=== PATIENT | male | born 1940 | race African-American/Black ===

== ENCOUNTER 2017-01-24 05:55 | Inpatient (IN) ==
[2017-01-24] MEDS ORDERED: DIAZEPAM 5 MG TABLET PO ONE (05:56)
[2017-01-24] MEDS ORDERED: ceFAZolin 1,000 MG VIAL IRRIG ONE (05:58)
[2017-01-24] MEDS ORDERED: DEXTROSE 5% NACL 0.45% 1,000 ML IV SCH (06:00)
[2017-01-24] MEDS ORDERED: DIAZEPAM 5 MG TABLET ONE (07:19)
[2017-01-24] MEDS ORDERED: ceFAZolin 1,000 MG VIAL ONE ×2 (07:19→08:27)
[2017-01-24 07:28] LABS: Basophils % 0.3 % (0.0-0.8); Eosinophils # 0.1 10*3/uL (0.0-0.87); Hematocrit 42.3 VOL% (42.0-52.0); Hemoglobin 13.8 GM/DL (14.0-18.0); Immature Granulocytes % 0.3 %; Immature Granulocytes Absolute 0.01 #; Lymphocytes # 1.2 10*3/uL (1.4-4.0); Lymphocytes % 32.4 % (21.2-54.2); Mean Corpuscular HGB Conc 32.6 GM/DL (32-36); Mean Corpuscular Hemoglobin 27 PG (27-34); Mean Corpuscular Volume 81.8 FL (87-102); Mean Platelet Volume 10.7 FL (9.6-12.0); Monocytes # 0.4 10*3/uL (0.11-0.8); Monocytes % 10.7 % (1.7-12.7); Neutrophils # 1.9 10*3/uL (1.4-7.4); Neutrophils % 54.3 % (38.7-73.9); Platelet Count 148 T/CUMM (130-400); Red Blood Count 5.17 MC/CUMM (3.8-5.5); Red Cell Distribution Width 15.2 % (9.3-17.3); White Blood Count 3.6 T/CUMM (4-12)
[2017-01-24 07:38] LABS: INR 1.2; PT Patient Result 12.5 SECS; Partial Thromboplastin Time 33.4 SECS (0-40)
--- NOTE | 2017-01-24 07:58 | XRay Report ---
History: Preop pacemaker. Sick sinus syndrome. Hypertension Date: 01/24/2017 Study: Chest x-ray AP portable Comparison exam: March 07, 2016 There is mild cardiomegaly. The mediastinal contours are unchanged, with mild ectasia and tortuosity of the thoracic aorta. The pulmonary vasculature is not engorged. The lungs are grossly clear when accounting for shallow inspiration. There is no pleural effusion. There is mild thoracic spondylosis. Impression: No acute cardiopulmonary process. Mild cardiomegaly PROCEDURE INTERPRETED AT [facility] DEPARTMENT OF RADIOLOGY Final Report Signed by: Dr. Radha Larsen
[2017-01-24 07:59] LABS: Calcium 9.2 MG/DL (8.5-10.1); Osmolality,Calculated 282.1 MOS/KG (273-304); Potassium 3.3 MMOL/L (3.5-5.1)
[2017-01-24] MEDS ORDERED: HEPARIN/NACL 0.9% 2 UNITS/ML 500 ML IV ONE (08:26)
[2017-01-24] MEDS ORDERED: LIDOCAINE 1%/EPI INJ 20 ML VIAL ONE (08:26)
[2017-01-24] MEDS ORDERED: fentaNYL 100 MCG/2 ML VIAL ONE (08:53)
[2017-01-24] MEDS ORDERED: MIDAZOLAM 2 MG/2 ML VIAL ONE (08:53)
--- NOTE | 2017-01-24 09:07 | EKG Report ---
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
--- NOTE | 2017-01-24 09:13 | History and Physical Update ---
Sedation H&P Update - History and Physical H&P was reviewed, the patient examined and there: are no changes in the patients condition since last H&P was completed. - Sedation Plan for Sedation: moderate Patient Consent: Procedure disscussed with patient and patinet has consented., Risks and benefits were discussed with patient,including infection,, bleeding, injury to surrounding structures, seizure, temporary nerve, Patient understands and accepts potential risks/benefits and agrees to, proceed. ASA Class: III Airway Assessment: Class III: Soft palate, base of uvula visible
--- NOTE | 2017-01-24 10:11 | Cardiology Operative Report ---
Date of Procedure:: 01/24/17 Pre-op diagnosis: Patient with high-grade AV block and symptoms sick sinus syndrome for pacem Post-op diagnosis: same Procedure: Procedures performed: Dual-chamber pacemaker implant left subclavian vein Indication: See clinical summary above Estimated blood loss: Less than 20 mL Devices implanted: [ Atrial lead: Medtronic model #5076 serial number [id number] ] Ventricular lead: Medtronic model #5076 serial number [id number] Pacemaker: Medtronic model number [id number] Serial number [id number] After obtaining informed consent the patient was brought to the [employer] [facility] where the left shoulder was prepped and draped in the usual sterile manner. Using intravenous sedation and local anesthesia a micropuncture needle was used to gain access to the left subclavian vein a micropuncture wire was advanced under fluoroscopy with its tip in the right atrium. The micropuncture needle was removed off of the wire and using the supplied exchange sheath a micropuncture wire was exchanged for an 035 J-wire. At this point a cutdown was made to the prepectoral fascia extended caudally and laterally roughly 5 cm. Bleeding was controlled using electrocautery. At this point another needle stick was made medial to the first with a micropuncture needle inserted into the left subclavian vein. A micropuncture wire was then advanced through the micropuncture needle with its tip to the right atrium. Using the supplied sheath this micropuncture wire was exchanged for an 035 J-wire. The medial wire was then used to pass a tear-away sheath. Through this sheath the ventricular lead was advanced under fluoroscopy with its tip into the right atrium. The sheath was torn away and then the RV lead was advanced under fluoroscopy with its tip near the right ventricular apex. The helix was extended and fluoroscopy was obtained laterally to be certain that the lead was projected anteriorly. Preliminary measurements were felt to be acceptable and at this point the lateral wire was used to pass another tear-away sheath. Through this sheath a atrial lead was passed under fluoroscopy with its tip to the right atrium. The sheath was torn away and using the J stylette this lead was manipulated into the right atrial appendage where the helix was extended and preliminary measurements were felt to be acceptable. At this point both Venotomy sites were closed in a pursestring manner using nonabsorbable suture. The leads were then secured to the underlying pectoral muscle using interrupted nonabsorbable suture. Next a pocket was formed using blunt and sharp dissection. He was irrigated copiously with antibiotic solution and care was taken to suction the irrigant from the pocket to avoid sterile abscess formation. Next the leads were connected to the pulse generator and set screws were tightened and tested. The leads and the device replaced into the pocket the device was secured to the underlying pectoral muscle using a single nonabsorbable suture and the pocket was closed in 2 layers using absorbable suture. Final testing of the leads was done prior to connecting the leads to the pulse generator and these findings are outlined as follows: In the right atrium at a pulse width of 0.5 ms voltage threshold was 1.5 V impedance 847 ohms and the P-wave measured 1.9 mV in the ventricle at a pulse width of 0.5 ms voltage threshold was 0.4 V impedance 841 ohms and R-wave 5.2 failing before he gets to his room mV. These were felt to be acceptable acute numbers. The patient then was transferred to recovery having suffered no significant immediate complications. Postoperative chest x-ray is pending. Surgeon / Physician: Selvin Galaviz Estimated blood loss: minimal Specimens: none sent Condition: stable
--- NOTE | 2017-01-24 11:13 | XRay Report ---
History: Postop pacemaker placement Date: 01/24/2017 at 10:26 AM Study: Chest x-ray AP portable Comparison exam: Portable chest x-ray 01/24/2017 at 6:38 AM A left subclavian dual-lead transvenous pacemaker is generally intact and well-positioned. There is no pneumothorax. There is stable mild cardiomegaly. The mediastinal contours are unchanged. The lungs remain generally clear aside from some mild platelike subsegmental atelectasis in the left lower lung. There is no gross pleural effusion. Osseous structures are similar. Impression: Satisfactory positioning of the pacemaker. No evidence of pneumothorax. Mild platelike subsegmental atelectasis left lung base. Otherwise unchanged PROCEDURE INTERPRETED AT [facility] DEPARTMENT OF RADIOLOGY Final Report Signed by: Dr. Radha Larsen
[2017-01-24] MEDS: ATORVASTATIN 10 MG TABLET PO SCH (21:39)
[2017-01-24] MEDS: BRIMONIDINE 0.1% OPH SOLN 5 ML BOTTLE BOTH EYES SCH (22:53)
[2017-01-25] MEDS: DORZOLAMIDE 2% OPH SOLN 10 ML BOTTLE BOTH EYES SCH ×3 (00:09→21:39)
[2017-01-25] MEDS ORDERED: SODIUM CHLORIDE 0.9% 1,000 ML IV SCH (05:00)
[2017-01-25 05:25] LABS: Basophils % 0.2 % (0.0-0.8); Eosinophils # 0.1 10*3/uL (0.0-0.87); Eosinophils % 0.9 % (0.00-10.9); Hematocrit 42.1 VOL% (42.0-52.0); Hemoglobin 13.9 GM/DL (14.0-18.0); Immature Granulocytes % 0.4 %; Immature Granulocytes Absolute 0.02 #; Lymphocytes # 1.1 10*3/uL (1.4-4.0); Lymphocytes % 19.3 % (21.2-54.2); Mean Corpuscular Hemoglobin 27 PG (27-34); Mean Corpuscular Volume 80.7 FL (87-102); Mean Platelet Volume 11.1 FL (9.6-12.0); Monocytes # 0.7 10*3/uL (0.11-0.8); Monocytes % 12.6 % (1.7-12.7); Neutrophils # 3.8 10*3/uL (1.4-7.4); Neutrophils % 66.6 % (38.7-73.9); Platelet Count 146 T/CUMM (130-400); Red Blood Count 5.22 MC/CUMM (3.8-5.5); Red Cell Distribution Width 15.4 % (9.3-17.3); White Blood Count 5.7 T/CUMM (4-12)
[2017-01-25 05:28] LABS: Eosinophils % 0.5 % (0.00-10.9); Hematocrit 42.4 VOL% (42.0-52.0); Immature Granulocytes % 0.2 %; Immature Granulocytes Absolute 0.01 #; Lymphocytes # 1.2 10*3/uL (1.4-4.0); Lymphocytes % 20.8 % (21.2-54.2); Mean Corpuscular Hemoglobin 27 PG (27-34); Mean Corpuscular Volume 80.6 FL (87-102); Mean Platelet Volume 10.5 FL (9.6-12.0); Monocytes # 0.7 10*3/uL (0.11-0.8); Monocytes % 12.8 % (1.7-12.7); Neutrophils # 3.8 10*3/uL (1.4-7.4); Neutrophils % 65.7 % (38.7-73.9); Platelet Count 148 T/CUMM (130-400); Red Blood Count 5.26 MC/CUMM (3.8-5.5); Red Cell Distribution Width 15.2 % (9.3-17.3); White Blood Count 5.7 T/CUMM (4-12)
[2017-01-25 05:34] LABS: INR 1.2; PT Patient Result 12.8 SECS; Partial Thromboplastin Time 33.8 SECS (0-40)
[2017-01-25 05:59] LABS: Calcium 8.5 MG/DL (8.5-10.1); Osmolality,Calculated 286.8 MOS/KG (273-304); Potassium 3.4 MMOL/L (3.5-5.1)
[2017-01-25 06:00] LABS: Albumin 3.4 G/DL (3.4-5.0); Bilirubin,Total 0.9 MG/DL (0.2-1.0); Calcium 8.7 MG/DL (8.5-10.1); Osmolality,Calculated 286.8 MOS/KG (273-304); Potassium 3.4 MMOL/L (3.5-5.1); Total Protein 6.3 G/DL (6.4-8.3)
--- NOTE | 2017-01-25 06:41 | CT Report ---
History is right-sided weakness and slurred speech There is diffuse atrophy. Small areas of chronic cortical loss in the right posterior parietal region and the right frontoparietal region present as well as in the cerebellar hemispheres. Moderate patchy white matter low densities present without acute intracranial hemorrhage or mass effects seen. No acute cortical stroke identified Impression: Chronic ischemic changes described above The CT exam was performed using one or more of the following dose reduction techniques: Automated exposure control, adjustment of the mA and/or kV according to patient size, or use of iterative reconstruction technique. PROCEDURE INTERPRETED AT [facility] DEPARTMENT OF RADIOLOGY Final Report Signed by: Dr. Viola Guy
--- NOTE | 2017-01-25 07:43 | EKG Report ---
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
--- NOTE | 2017-01-25 08:59 | Ultrasound Report ---
Exam: US carotid duplex BI Date: 01/25/2017 7:47 AM Indication: TIA Findings: Grayscale color flow analysis and spectral analysis imaging was performed with image stored and captured. Right Flow velocities centimeters per second Common carotid artery: 78 Proximal ICA: 34 Distal ICA: 64 External carotid artery: 72 Vertebral artery: 38 ICA/CCA ratio: 0.8 Measurements in millimeters Distal ICA: 6.7 Left: Flow velocities centimeters per second Common carotid artery: 43 Proximal ICA: 26 Distal ICA: 73 External carotid artery: 54 Vertebral artery: 43 ICA/CCA ratio: 1.7 Measurements in millimeters Distal ICA: 7.1 Technique grayscale color flow analysis performed. No spectral broadening present. No high-grade stenosis or occlusion. Cardiac dysrhythmia is however suspected. Impression: 1. 0-15% stenosis bilaterally 2. Cardiac dysrhythmia present Today studies were performed utilizing indirect NASCET criteria The ultrasound images were stored and captured PROCEDURE INTERPRETED AT [facility] DEPARTMENT OF RADIOLOGY Final Report Signed by: Dr. Brad Hicks
[2017-01-25] MEDS ORDERED: LATANOPROST 0.005% OPH SOLN 2.5 ML BOTTLE BOTH EYES SCH (09:00)
--- NOTE | 2017-01-25 09:03 | XRay Report ---
Exam: XR chest 2V Date: 01/25/2017 728 AM Indication: Cardiac lead placement Comparison: 01/24/2017 Findings: A left-sided cardiac pacing device is present. Atrial and ventricular leads are present. No pneumothorax. Mild atelectatic change present in the basilar regions and scarring. No obvious effusions. External cardiac leads are also present. The heart is normal in size. Oxygen tubing superimposes exam. Impression: 1. Stable position of the cardiac pacing device 2. Minimal scarring and atelectatic change in the basilar regions PROCEDURE INTERPRETED AT [facility] DEPARTMENT OF RADIOLOGY Final Report Signed by: Dr. Brad Hicks
[2017-01-25] MEDS: PANTOPRAZOLE 40 MG TABLET PO SCH (09:31)
[2017-01-25] MEDS: FENOFIBRATE 145 MG TABLET PO SCH (09:31)
[2017-01-25] MEDS: ASPIRIN EC 81 MG TABLET PO SCH (09:37)
[2017-01-25] MEDS: hydroCHLOROthiazide 25 MG TABLET PO SCH (09:37)
[2017-01-25] MEDS: CLOPIDOGREL 75 MG TABLET PO SCH (09:37)
[2017-01-25] MEDS: LISINOPRIL 20 MG TABLET PO SCH (09:39)
[2017-01-25] MEDS: ALLOPURINOL 300 MG TABLET PO SCH (09:40)
[2017-01-25] MEDS: TAMSULOSIN 0.4 MG CAPSULE PO SCH (09:40)
[2017-01-25] MEDS: POTASSIUM CHLORIDE 20 MEQ TABLET PO SCH (09:41)
[2017-01-25] MEDS: BRIMONIDINE 0.1% OPH SOLN 5 ML BOTTLE BOTH EYES SCH ×2 (09:52→21:39)
[2017-01-25] MEDS ORDERED: ENOXAPARIN 30 MG/0.3 ML SYRINGE SUBCUT SCH (11:30)
--- NOTE | 2017-01-25 11:31 | Cardiology Progress Note ---
Assessment and Plan (1) CVA (cerebral vascular accident) Status: Acute Assessment and plan: 1. 76-year-old status post pacemaker placement yesterday for AV block, found at 3 AM with right hemiparesis and slurred speech consistent with acute CVA 2. His symptoms have improved modestly since early this morning 3. Has a known history of paroxysmal atrial fibrillation, this likely an embolic phenomenon 4. CT shows no bleed or acute change; I discussed his case with Dr. Helmsand he recommended Lovenox 30 now and daily for the time being. 5. We will investigate to see if his pacemaker is MRI compatible in case that is needed. 6. We will check pacemaker interrogation to ensure appropriate function. 7. Chest x-ray shows no pneumothorax with pacemaker in proper position. Current Visit: Yes (2) Atrial fibrillation Status: Acute Current Visit: Yes Cardiology - PN: Subj Interval history: Mr. Dotson was found to have right hemiparesis and slurred speech about [address] scan showed no acute change. He has had modest improvement in his symptoms currently. Dr. Galaviz saw him this morning and he is given his aspirin and Plavix. I discussed his situation with Dr. Helms, recommended Lovenox 30 now and daily. He is not having chest pain or shortness of breath. He can tell me his 2017 and that he is in the hospital and [place]. Exam (Progress Note) - Constitutional Vitals: Period Temp Pulse Resp BP Sys/Hernández Pulse Ox Last 24 Hr 97.2 F-99.3 F 60-111 18-22 117-141/67-91 92-99 General appearance: normal weight, no acute distress - Head Head exam: Present: normal inspection, normocephalic, atraumatic - Respiratory Respiratory exam: Present: clear to auscultation bilaterally. Absent: rhonchi, stridor, wheezes - Cardiovascular Cardiovascular exam: Present: irregular rhythm. Absent: diastolic murmur, rubs - GI/Abdominal GI/Abdominal exam: Present: soft. Absent: tenderness - Extremities Exam Extremities exam: Present: other (He is able to move his right arm and leg but somewhat slowly and there is clear weakness.). Absent: edema - Psychiatric Psychiatric exam: Present: flat affect Result/EKG - Labs CBC & BMP: 01/25/17 05:15 01/25/17 05:15 Labs: Laboratory Results - last 24 hr 01/25/17 01/25/17 01/25/17 04:22 04:22 04:40 WBC 5.7 D RBC 5.22 Hgb 13.9 L Hct 42.1 MCV 80.7 L MCH 27 MCHC 33.0 RDW 15.4 Plt Count 146 MPV 11.1 Neut % (Auto) 66.6 Lymph % (Auto) 19.3 L [place] % (Auto) 12.6 Eos % (Auto) 0.9 Baso % (Auto) 0.2 Neut # (Auto) 3.8 Lymph # (Auto) 1.1 L [place] # (Auto) 0.7 Eos # (Auto) 0.1 Baso # (Auto) 0.0 Immature Gran % 0.4 Nucleated RBC % 0.0 Immature Gran # 0.02 Nucleated RBCs # 0.00 INR PT Patient/Control Mix Circ Anticoag PTT Sodium 144 Potassium 3.4 L Chloride 111 H Carbon Dioxide 25 Anion Gap 11.4 BUN 15 Creatinine 1.30 GFR Calculation 70 BUN/Creatinine Ratio 11.00 Glucose 90 POC Glucose 99 Calculated Osmolality 286.8 Calcium 8.5 Total Bilirubin AST ALT Alkaline Phosphatase Total Protein Albumin Globulin Albumin/Globulin Ratio 01/25/17 01/25/17 01/25/17 05:15 05:15 05:15 WBC 5.7 RBC 5.26 Hgb 14.0 Hct 42.4 MCV 80.6 L MCH 27 MCHC 33.0 RDW 15.2 Plt Count 148 MPV 10.5 Neut % (Auto) 65.7 Lymph % (Auto) 20.8 L [place] % (Auto) 12.8 H Eos % (Auto) 0.5 Baso % (Auto) 0.0 Neut # (Auto) 3.8 Lymph # (Auto) 1.2 L [place] # (Auto) 0.7 Eos # (Auto) 0.0 Baso # (Auto) 0.0 Immature Gran % 0.2 Nucleated RBC % 0.0 Immature Gran # 0.01 Nucleated RBCs # 0.00 INR 1.2 PT Patient/Control Mix 12.8 Circ Anticoag PTT 33.8 Sodium 144 Potassium 3.4 L Chloride 111 H Carbon Dioxide 24 Anion Gap 12.4 BUN 15 Creatinine 1.30 GFR Calculation 70 BUN/Creatinine Ratio 11.00 Glucose 94 POC Glucose Calculated Osmolality 286.8 Calcium 8.7 Total Bilirubin 0.90 AST 13 ALT 14 L Alkaline Phosphatase 24 L Total Protein 6.3 L Albumin 3.4 Globulin 2.9 Albumin/Globulin Ratio 1.1 Quality Measures - VTE Contraindication to Pharmacological VTE Prophylaxis: High Risk of Bleeding
--- NOTE | 2017-01-25 16:46 | Neurology Consult Note ---
History of Present Illness History of present illness: 76-year-old -[place] gentleman who is status post pacemaker placement yesterday for AV block found at 3 in the morning with right hemiparesis and slurred speech. Family reported that he did fine all day yesterday after the pacemaker placement. But earlier this morning he developed the symptoms and found that he could not move his right side much. He denies any speech difficulties or swallowing problems. His symptoms has improved modestly since early this morning. He has known history of paroxysmal atrial fibrillation. This does look like subcortical infarct. Chest x-ray shows no pneumothorax. CT of the head is unremarkable. Patient is unable to walk. He was totally independent prior to the admission. Home Medications Medication Instructions Recorded Confirmed Type Allopurinol 300 mg PO DAILY 01/19/17 01/24/17 History Atorvastatin [Lipitor] 10 mg PO BEDTIME 01/19/17 01/24/17 History Clopidogrel [Plavix] 75 mg PO DAILY 01/19/17 01/24/17 History Fenofibrate [Tricor] 145 mg PO DAILY 01/19/17 01/24/17 History Lisinopril 40 mg PO DAILY 01/19/17 01/24/17 History Potassium Chloride 20 meq PO DAILY 01/19/17 01/24/17 History Tamsulosin [Flomax] 0.4 mg PO DAILY 01/19/17 01/24/17 History hydroCHLOROthiazide 12.5 mg PO DAILY 01/19/17 01/24/17 History [Hydrochlorothiazide] Brimonidine 0.1% Oph Soln 1 drop BOTH EYES BID 01/24/17 01/24/17 History [Alphagan P 0.1% Oph Soln] Dorzolamide HCl [Dorzolamide 2% 1 drop BOTH EYES BID 01/24/17 01/24/17 History Oph Soln] Esomeprazole Magnesium [Nexium] 40 mg PO DAILY 01/24/17 01/24/17 History Latanoprost 0.005% Oph Soln 1 drop BOTH EYES DAILY 01/24/17 01/24/17 History [Xalatan 0.005% Oph Soln] Allergies Allergy/AdvReac Type Severity Reaction Status Date / Time No Known Allergies Allergy Verified 01/24/17 06:54 12 point system: reviewed and no additional remarkable complaints except as stated Medical,Surgical,& Family Hx - Medical History Cardio: History of: Hypertension Neurology: History of: TIA No history of: Seizures HEENT: History of: Glaucoma Rheumatology: History of;: Gout Genitourinary: History of: Prostate Problems Hematology: No history of: Blood Transfusion Reaction Other: No history of: Anaphylaxis, Cancer - Surgical History Thoracic Surgeries: Patient denies;: Lobectomy HEENT Surgeries: Surgical HX of: Eye Surgery (cateract), Tonsilectomy & Adenoidectomy (tonsilectomy in about 1952) Abdominal Surgeries: Patient denies: Abdominal Surgery Reproductive Surgeries: Patient denies;: Prostate Surgery (supposed to be scheduled for surgery after pacemaker placed) Orthopedic Surgeries: Surgical HX of;: Implanted Devices (Pacemaker), Orthopedic Surgery (left knee repair in 2010) - Family History Family History: Reports;: Family Heart Disease (parents), Family Hypertension ( parents), Family Stroke (father) Denies;: Family Cancer, Family Diabetes - Social History Smoking Status: Never smoker Frequency of Alcohol Use: None Type of Drug Use: None Exam - Constitutional Vitals: Period Temp Pulse Resp BP Sys/Hernández Pulse Ox Last 24 Hr 97.7 F-99.3 F 69-111 18-22 117-130/67-81 92-98 Exam: GENERAL: Patient is in no acute distress. NECK: Neck is supple. There is no JVD. No carotid bruits present. No thyroid masses. CVS: First and second heart sounds are normal. There is no S3 present. Regular rate and rhythm. RESPIRATORY: Lungs are clear to auscultation without any rales or rhonchi. ABDOMEN: Soft and non-tender. Bowel sounds are present. There is no hepatosplenomegaly. EXT: There is no palpable edema. Peripheral pulses are present. Skin: No rashes Central Nervous system: General: Alert, awake Speech: Fluent but dysarthric Comprehension: Intact and normal Facial expressions: Normal Cranial Nerves: CN1/Olfactory: Normal CN II/ Optic: Normal, Visual Mckeon unreliable CN III, and : ELENITA & EOMI CN V: Normal & intact CN VII: face is symmetric CNVIII: Normal CN XI/X/XI/XII: Intact and Normal Motor: Bulk and Tone is normal. Strength in the right 3/5 Strength in the left 5/5 Sensory: Decreased for all the modalities of PP, LT and temp sense in the right Reflexes: 1+ and symmetrical Cerebellar function: Slow finger to nose and heel to rene testing in the right. Toes: Equivocal Gait: Cannot be tested at this time Results - Labs CBC & BMP: 01/25/17 05:15 01/25/17 05:15 Assessment and Plan (1) Status post placement of cardiac pacemaker Status: Acute Assessment and plan: This is a stable. Current Visit: Yes (2) CVA (cerebral vascular accident) Status: Acute Assessment and plan: Continue aspirin Plavix and Lovenox for now. Start and continue PT and OT Consult TMR Thank you for the consult Current Visit: Yes
[2017-01-25] MEDS: ATORVASTATIN 10 MG TABLET PO SCH (21:38)
[2017-01-26] MEDS: POTASSIUM CHLORIDE 20 MEQ TABLET PO SCH (10:16)
[2017-01-26] MEDS: ASPIRIN EC 81 MG TABLET PO SCH (10:16)
[2017-01-26] MEDS: ALLOPURINOL 300 MG TABLET PO SCH (10:17)
[2017-01-26] MEDS: CLOPIDOGREL 75 MG TABLET PO SCH (10:17)
[2017-01-26] MEDS: LISINOPRIL 20 MG TABLET PO SCH (10:18)
[2017-01-26] MEDS: TAMSULOSIN 0.4 MG CAPSULE PO SCH (10:19)
[2017-01-26] MEDS: PANTOPRAZOLE 40 MG TABLET PO SCH (10:19)
[2017-01-26] MEDS: FENOFIBRATE 145 MG TABLET PO SCH (10:19)
[2017-01-26] MEDS: hydroCHLOROthiazide 25 MG TABLET PO SCH (10:20)
[2017-01-26 11:53] VITALS: BP 134/85
--- NOTE | 2017-01-26 11:53 | Discharge Summary ---
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 He has a past medical history of paroxysmal atrial fibrillation, hyperlipidemia and hypertension. His hospitalization was complicated with right hemiparesis and slurred speech consistent with acute CVA. 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 Patient underwent head CT which revealed chronic ischemic changes. No acute intracranial hemorrhage or mass-effects noted. Carotid ultrasound revealed 0-15% stenosis bilaterally. Neurology was consulted. Discussed the case personally with Dr. Rebolledo and he recommends Eliquis and Lovenox. Aspirin and Plavix were discontinued per his recommendation. This morning, patient is doing well. Family is at bedside. They report that he continues to have difficulty with ambulation and needs assistance. Speech is clear. Equal bilateral handgrips. Pacemaker insertion site to left upper chest looks good. Chest x-ray reveals satisfactory lead placement. Pacemaker interrogation completed, functioning appropriately. Left arm sling immobilizer. Instructed to continue to wear left arm immobilizer until seen by Dr. Galaviz have follow-up appointment. Due to unsteady gait, case management was consulted to assist with placement to rehab facility. Patient has been accepted to [facility] rehab facility. Patient will need continued physical therapy as well as occupational therapy. Patient is stable today for discharge to [facility] rehab facility. He will be given a follow-up appointment with Dr. Galaviz 1-2 weeks with pacemaker interrogation, CBC and EKG. Per Dr. Rebolledo's recommendations, Eliquis and Lovenox will be continued at [facility] rehab facility. Continue physical and occupational therapy at rehab facility. Patient as well as his family verbalized understanding of discharge instructions and discharge medications. - Time spent with patient Time with patient DS: Greater than 30 minutes Diagnosis - Discharge Diagnosis (1) Status post placement of cardiac pacemaker Status: Acute (2) Hypertension Status: Chronic (3) Hyperlipidemia Status: Chronic (4) Atrial fibrillation Status: Chronic (5) CVA (cerebral vascular accident) Status: Acute Specialty Discharge - Follow Up or Referrals Follow up with: Selvin Galvaiz MD [Physician] - (Patient will need a follow-up appointment with Dr. Galaviz in 1-2 weeks with pacemaker interrogation, EKG and CBC.) Rubin Rebolledo MD [Physician] - 2 Weeks () Discharge Plan - Discharge Data Disposition: Disch/Xfer-Ip Rehab Fac Condition at Discharge: Stable Discharge Diet: low fat, low cholesterol Activity: as per physical therapy Hygiene: other (With assistance) Weight Bearing at Discharge: other (As per physical therapy) Driving: not until seen by doctor Contact your physician if you experience:: fever over 101, Difficulty voiding, Redness or swelling, Nausea/Vomiting, Shortness of breath, Bleeding, pain uncontrolled by pain medications - Discharge Medications New Enoxaparin [Lovenox] 30 mg SUBCUT Q24H syringe Apixaban [Eliquis] 5 mg PO BID tablet Continue Potassium Chloride 20 meq PO DAILY Fenofibrate [Tricor] 145 mg PO DAILY hydroCHLOROthiazide [Hydrochlorothiazide] 12.5 mg PO DAILY Lisinopril 40 mg PO DAILY Atorvastatin [Lipitor] 10 mg PO BEDTIME Allopurinol 300 mg PO DAILY Latanoprost 0.005% Oph Soln [Xalatan 0.005% Oph Soln] 1 drop BOTH EYES DAILY Dorzolamide HCl [Dorzolamide 2% Oph Soln] 1 drop BOTH EYES BID Brimonidine 0.1% Oph Soln [Alphagan P 0.1% Oph Soln] 1 drop BOTH EYES BID Tamsulosin [Flomax] 0.4 mg PO DAILY Esomeprazole Magnesium [Nexium] 40 mg PO DAILY Discontinued Clopidogrel [Plavix] 75 mg PO DAILY - Follow Up or Referral Follow Up: Rubin Rebolledo MD [Physician] - 2 Weeks () Selvin Galaviz MD [Physician] - (Patient will need a follow-up appointment with Dr. Galvaiz in 1-2 weeks with pacemaker interrogation, EKG and CBC.) - Forms/Instructions Instructions: Pacemaker (DC), Ischemic Stroke (DC) Exam - Constitutional Vitals: Period Temp Pulse Resp BP Sys/Hernández Pulse Ox Last 24 Hr 96.2 F-99 F 69-81 18-20 105-157/64-82 94-98 Exam: General: Appears well with no apparent distress. Pleasant and cooperative. Appears comfortable. HEENT: PERRL, normocephalic, atraumatic. Mucous membranes moist. No jaundice noted. Conjunctiva moist and clear, sclerae anicteric Neck: No JVD/HJR, no thyromegaly or lymphadenopathy noted. Cardiac: Paced rhythm. Chest wall: Pacemaker insertion site looks good. Left arm immobilizer intact. Lungs: Clear to auscultation without accessory muscle use to assist the respiratory pattern. Not requiring oxygen. Abdomen: Soft, bowel sounds normoactive. Nontender and nondistended. No abdominal bruit or thrill noted. No masses noted. Extremities: No clubbing, cyanosis noted. No edema noted. Upper extremity pulses 2+. Lower extremity pulses 2+. Capillary refill less than 3 seconds. Skin: No unusual lesions or rashes. No skin breakdown appreciated. Neuro: Awake, alert and oriented 3. Strength in right 4 out of 5. Strength: Left 5 out of 5. Unsteady gait. Discharge Results - Imaging and Cardiology Cardiology Procedure: report reviewed by me Procedure: Chest x-ray: report reviewed by me, CT: report reviewed by me DS: Provider Date of admission: 01/26/17 06:44 Primary care physician: Dr. Selvin Galaviz Attending physician on admission: Selvin Galaviz MD Consults: 01/25/17 07:45 Consult to Physician [CONS] Routine Comment: tia Consulting Provider: Rubin Rebolledo Person Notified: Elizabet Date Notified: 01/25/17 Time Notified: 08:30 01/26/17 04:50 Consult to Physical Therapy [CONS] Routine Reason for Physical Therapy: Weakness OT [Consult to Occupational Therapy] [CONS] Routine Reason for Occupational Therapy: Other Discharging clinician: Naina Shankar NP Expected date of discharge: 01/26/17
[2017-01-26] MEDS ORDERED: APIXABAN 5 MG TABLET PO SCH (21:00)
== END 2017-01-26 14:50 | DRG 242 ==
LOC: N.CL 05:55 → N.TELEN 10:41
PROVIDERS: ADMIT Internal Medicine Interventional Cardiology; ATTEND Internal Medicine Interventional Cardiology

== ENCOUNTER 2017-09-29 19:28 | Inpatient (IN) ==
[2017-09-29] MEDS ORDERED: ACETAMINOPHEN 500 MG TABLET ONE (19:33)
[2017-09-29] MEDS ORDERED: SODIUM CHLORIDE 0.9% 500 ML IV STA (19:43)
[2017-09-29] MEDS ORDERED: KETOROLAC 30 MG/1 ML VIAL IV STA (19:43)
[2017-09-29] MEDS ORDERED: KETOROLAC 30 MG/1 ML VIAL ONE (20:07)
[2017-09-29 21:18] LABS: Basophils % 0.2 % (0.0-0.8); Eosinophils % 0.1 % (0.00-10.9); Hemoglobin 14.5 GM/DL (14.0-18.0); Immature Granulocytes % 0.6 %; Immature Granulocytes Absolute 0.07 #; Lymphocytes # 0.8 10*3/uL (1.4-4.0); Lymphocytes % 6.9 % (21.2-54.2); Mean Corpuscular Hemoglobin 27 PG (27-34); Mean Platelet Volume 10.9 FL (9.6-12.0); Monocytes # 1.4 10*3/uL (0.11-0.8); Monocytes % 11.5 % (1.7-12.7); Neutrophils # 9.9 10*3/uL (1.4-7.4); Neutrophils % 80.7 % (38.7-73.9); Platelet Count 142 T/CUMM (130-400); Red Blood Count 5.43 MC/CUMM (3.8-5.5); Red Cell Distribution Width 16.1 % (9.3-17.3); White Blood Count 12.2 T/CUMM (4-12)
[2017-09-29 21:38] LABS: Albumin 3.6 G/DL (3.4-5.0); Calcium 8.6 MG/DL (8.5-10.1); Osmolality,Calculated 282.1 MOS/KG (273-304); Potassium 2.8 MMOL/L (3.5-5.1); Total Protein 7.3 G/DL (6.4-8.3)
[2017-09-29 22:02] LABS: Apearance,Urine CLOUDY (Clear); Bacteria,Urine Many /HPF (Few); Bilirubin,Urine Negative (Negative); Blood, Urine Small mg/dL (Negative); Glucose,Urine (UA) Negative (Negative); Ketones,Urine Negative (Negative); Nitrite,Urine Negative (Negative); Protein,Urine 30 MG/DL; RBC,Urine 9 /HPF (0-4); Squamous Epithelial Cell,Urine Occasional /HPF (0-10); Urine Color Yellow (Yellow); WBC,Urine 248 /HPF (0-6)
[2017-09-29] MEDS ORDERED: LEVOFLOXACIN INJ 750 MG in PREMIX 1 EACH IV STA (22:03)
[2017-09-29] MEDS ORDERED: LEVOFLOXACIN INJ 0 ML IV ONE (22:15)
[2017-09-29] MEDS ORDERED: POTASSIUM CHLORIDE 20 MEQ TABLET PO ONE ×2 (22:36→23:20)
[2017-09-30] MEDS ORDERED: MORPHINE 2 MG/1 ML SYRINGE IV PRN (01:19)
[2017-09-30] MEDS ORDERED: SODIUM CHLORIDE 0.9% 500 ML IV ONE (01:19)
[2017-09-30] MEDS ORDERED: ONDANSETRON 4 MG/2 ML VIAL IV PRN (01:19)
[2017-09-30] MEDS: SODIUM CHLORIDE 0.9% 1,000 ML IV SCH ×4 (02:49→21:34)
[2017-09-30] MEDS ORDERED: ACETAMINOPHEN 500 MG TABLET PO ONE (06:03)
[2017-09-30 06:34] LABS: Albumin 3.1 G/DL (3.4-5.0); Bilirubin,Total 1.3 MG/DL (0.2-1.0); Calcium 8.1 MG/DL (8.5-10.1); Osmolality,Calculated 284.8 MOS/KG (273-304); Potassium 3.6 MMOL/L (3.5-5.1); Risk Ratio 2.85; Total Protein 6.1 G/DL (6.4-8.3); VLDL CHOLESTEROL 13.4 MG/DL
[2017-09-30] MEDS: POTASSIUM CHLORIDE 20 MEQ TABLET PO PRN ×2 (07:34→09:24)
[2017-09-30] MEDS: DOCUSATE SODIUM 100 MG CAPSULE PO SCH ×3 (09:23→21:11)
[2017-09-30] MEDS: PANTOPRAZOLE 40 MG TABLET PO SCH (09:23)
[2017-09-30] MEDS: ACETAMINOPHEN 325 MG TABLET PO PRN ×2 (09:35→21:00)
[2017-09-30] MEDS ORDERED: DORZOLAMIDE 2% OPH SOLN 10 ML BOTTLE BOTH EYES SCH (11:00)
[2017-09-30] MEDS: APIXABAN 5 MG TABLET PO SCH ×2 (11:12→21:00)
[2017-09-30] MEDS: cefTRIAXone 2,000 MG in SYRINGE 1 EACH IV SCH (11:13)
[2017-09-30] MEDS: ALLOPURINOL 300 MG TABLET PO SCH (11:13)
[2017-09-30] MEDS: FENOFIBRATE 145 MG TABLET PO SCH (11:13)
[2017-09-30] MEDS: amLODIPine 5 MG TABLET PO SCH (11:13)
[2017-09-30] MEDS: LATANOPROST 0.005% OPH SOLN 2.5 ML BOTTLE BOTH EYES SCH (11:15)
[2017-09-30] MEDS: BRIMONIDINE 0.1% OPH SOLN 5 ML BOTTLE BOTH EYES SCH ×2 (11:15→21:01)
[2017-09-30] MEDS: ATORVASTATIN 10 MG TABLET PO SCH (21:00)
[2017-10-01] MEDS: LEVOFLOXACIN INJ 750 MG in PREMIX 1 EACH IV SCH (00:36)
[2017-10-01] MEDS: SODIUM CHLORIDE 0.9% 1,000 ML IV SCH ×3 (07:30→18:19)
[2017-10-01] MEDS: TAMSULOSIN 0.4 MG CAPSULE PO SCH (08:24)
[2017-10-01] MEDS: DOCUSATE SODIUM 100 MG CAPSULE PO SCH ×2 (08:24→21:24)
[2017-10-01] MEDS: FENOFIBRATE 145 MG TABLET PO SCH (08:24)
[2017-10-01] MEDS: LISINOPRIL 20 MG TABLET PO SCH (08:24)
[2017-10-01] MEDS: amLODIPine 5 MG TABLET PO SCH (08:25)
[2017-10-01] MEDS: PANTOPRAZOLE 40 MG TABLET PO SCH (08:25)
[2017-10-01] MEDS: POTASSIUM CHLORIDE 20 MEQ TABLET PO SCH (08:25)
[2017-10-01] MEDS: ALLOPURINOL 300 MG TABLET PO SCH (08:25)
[2017-10-01] MEDS: APIXABAN 5 MG TABLET PO SCH ×2 (08:26→21:23)
[2017-10-01] MEDS: BRIMONIDINE 0.1% OPH SOLN 5 ML BOTTLE BOTH EYES SCH ×2 (08:27→21:24)
[2017-10-01] MEDS: LATANOPROST 0.005% OPH SOLN 2.5 ML BOTTLE BOTH EYES SCH (08:28)
[2017-10-01] MEDS ORDERED: ERGOCALCIFEROL 50,000 UNIT CAPSULE PO SCH (10:00)
[2017-10-01] MEDS: cefTRIAXone 2,000 MG in SYRINGE 1 EACH IV SCH (12:38)
[2017-10-01] MEDS: VANCOMYCIN INJ 1,000 MG in SODIUM CHLORIDE 0.9% 250 ML IV SCH (15:10)
[2017-10-01] MEDS: ACETAMINOPHEN 325 MG TABLET PO PRN (16:10)
[2017-10-01] MEDS: ATORVASTATIN 10 MG TABLET PO SCH (21:24)
[2017-10-02] MEDS: LEVOFLOXACIN INJ 750 MG in PREMIX 1 EACH IV SCH (02:07)
[2017-10-02] MEDS: SODIUM CHLORIDE 0.9% 1,000 ML IV SCH ×2 (02:39→08:21)
[2017-10-02] MEDS ORDERED: guaiFENesin 200 MG/10 ML UDCUP PO PRN (03:00)
[2017-10-02] MEDS: VANCOMYCIN INJ 1,000 MG in SODIUM CHLORIDE 0.9% 250 ML IV SCH ×2 (04:08→14:19)
[2017-10-02 04:42] LABS: Eosinophils # 0.1 10*3/uL (0.0-0.87); Eosinophils % 1.4 % (0.00-10.9); Hematocrit 39.2 VOL% (42.0-52.0); Hemoglobin 13.2 GM/DL (14.0-18.0); Immature Granulocytes % 0.9 %; Immature Granulocytes Absolute 0.05 #; Lymphocytes # 0.7 10*3/uL (1.4-4.0); Mean Corpuscular HGB Conc 33.7 GM/DL (32-36); Mean Corpuscular Hemoglobin 27 PG (27-34); Mean Corpuscular Volume 79.8 FL (87-102); Mean Platelet Volume 11.3 FL (9.6-12.0); Monocytes # 0.6 10*3/uL (0.11-0.8); Monocytes % 10.6 % (1.7-12.7); Neutrophils # 4.2 10*3/uL (1.4-7.4); Neutrophils % 75.1 % (38.7-73.9); Platelet Count 124 T/CUMM (130-400); Red Blood Count 4.91 MC/CUMM (3.8-5.5); White Blood Count 5.6 T/CUMM (4-12)
[2017-10-02 05:22] LABS: Calcium 8.2 MG/DL (8.5-10.1); Potassium 3.6 MMOL/L (3.5-5.1)
[2017-10-02] MEDS: TAMSULOSIN 0.4 MG CAPSULE PO SCH (09:10)
[2017-10-02] MEDS: APIXABAN 5 MG TABLET PO SCH ×2 (09:11→21:43)
[2017-10-02] MEDS: ALLOPURINOL 300 MG TABLET PO SCH (09:11)
[2017-10-02] MEDS: FENOFIBRATE 145 MG TABLET PO SCH (09:14)
[2017-10-02] MEDS: POTASSIUM CHLORIDE 20 MEQ TABLET PO SCH (09:14)
[2017-10-02] MEDS: amLODIPine 5 MG TABLET PO SCH (09:14)
[2017-10-02] MEDS: DOCUSATE SODIUM 100 MG CAPSULE PO SCH ×2 (09:15→21:43)
[2017-10-02] MEDS: PANTOPRAZOLE 40 MG TABLET PO SCH (09:15)
[2017-10-02] MEDS: LISINOPRIL 20 MG TABLET PO SCH (09:17)
[2017-10-02] MEDS: LATANOPROST 0.005% OPH SOLN 2.5 ML BOTTLE BOTH EYES SCH (09:54)
[2017-10-02] MEDS: BRIMONIDINE 0.1% OPH SOLN 5 ML BOTTLE BOTH EYES SCH ×2 (09:54→21:43)
[2017-10-02] MEDS: POTASSIUM CHLORIDE 20 MEQ TABLET PO PRN (11:09)
[2017-10-02] MEDS: cefTRIAXone 2,000 MG in SYRINGE 1 EACH IV SCH (12:10)
[2017-10-02] MEDS: FINASTERIDE 5 MG TABLET PO SCH (21:43)
[2017-10-02] MEDS: ATORVASTATIN 10 MG TABLET PO SCH (21:43)
[2017-10-03] MEDS: VANCOMYCIN INJ 1,000 MG in SODIUM CHLORIDE 0.9% 250 ML IV SCH (03:47)
[2017-10-03] MEDS: SODIUM CHLORIDE 0.9% 1,000 ML IV SCH ×4 (03:49→18:33)
[2017-10-03] MEDS: APIXABAN 5 MG TABLET PO SCH ×2 (09:06→22:07)
[2017-10-03] MEDS: PANTOPRAZOLE 40 MG TABLET PO SCH (09:06)
[2017-10-03] MEDS: amLODIPine 5 MG TABLET PO SCH (09:06)
[2017-10-03] MEDS: TAMSULOSIN 0.4 MG CAPSULE PO SCH (09:06)
[2017-10-03] MEDS: POTASSIUM CHLORIDE 20 MEQ TABLET PO SCH (09:07)
[2017-10-03] MEDS: LISINOPRIL 20 MG TABLET PO SCH (09:07)
[2017-10-03] MEDS: BRIMONIDINE 0.1% OPH SOLN 5 ML BOTTLE BOTH EYES SCH ×2 (09:07→22:07)
[2017-10-03] MEDS: FENOFIBRATE 145 MG TABLET PO SCH (09:07)
[2017-10-03] MEDS: DOCUSATE SODIUM 100 MG CAPSULE PO SCH ×3 (09:07→22:07)
[2017-10-03] MEDS: ALLOPURINOL 300 MG TABLET PO SCH (09:07)
[2017-10-03] MEDS: LATANOPROST 0.005% OPH SOLN 2.5 ML BOTTLE BOTH EYES SCH (09:08)
[2017-10-03] MEDS: cefTRIAXone 1,000 MG in SYRINGE 1 EACH IV SCH (11:57)
[2017-10-03] MEDS: ACETAMINOPHEN 325 MG TABLET PO PRN (16:42)
[2017-10-03] MEDS: FINASTERIDE 5 MG TABLET PO SCH (22:07)
[2017-10-03] MEDS: ATORVASTATIN 10 MG TABLET PO SCH (22:07)
[2017-10-04] MEDS: SODIUM CHLORIDE 0.9% 1,000 ML IV SCH ×2 (02:41→10:37)
[2017-10-04] MEDS: PANTOPRAZOLE 40 MG TABLET PO SCH (08:37)
[2017-10-04] MEDS: APIXABAN 5 MG TABLET PO SCH (08:37)
[2017-10-04] MEDS: amLODIPine 5 MG TABLET PO SCH (08:37)
[2017-10-04] MEDS: ALLOPURINOL 300 MG TABLET PO SCH (08:37)
[2017-10-04] MEDS: FENOFIBRATE 145 MG TABLET PO SCH (08:37)
[2017-10-04] MEDS: LATANOPROST 0.005% OPH SOLN 2.5 ML BOTTLE BOTH EYES SCH (08:37)
[2017-10-04] MEDS: POTASSIUM CHLORIDE 20 MEQ TABLET PO SCH (08:37)
[2017-10-04] MEDS: BRIMONIDINE 0.1% OPH SOLN 5 ML BOTTLE BOTH EYES SCH (08:37)
[2017-10-04] MEDS: TAMSULOSIN 0.4 MG CAPSULE PO SCH (08:37)
[2017-10-04] MEDS: DOCUSATE SODIUM 100 MG CAPSULE PO SCH (08:37)
[2017-10-04] MEDS: LISINOPRIL 20 MG TABLET PO SCH (08:37)
[2017-10-04] MEDS: cefTRIAXone 1,000 MG in SYRINGE 1 EACH IV SCH (11:57)
[2017-10-04 12:15] VITALS: BP 111/83
[2017-10-04] MEDS ORDERED: MORPHINE 4 MG/1 ML VIAL IV PRN (14:17)
== END 2017-10-04 15:10 | disposition home health service (06) | DRG 690 ==
LOC: EDUNIT# → EDBD → N.ED 19:28 → N.EDINP 19:28 → N.TELEN 23:45
PROVIDERS: ADMIT Hospitalist; ATTEND Hospitalist

== ENCOUNTER 2022-03-15 16:52 | Inpatient (IN) ==
[2022-03-15] MEDS ORDERED: ACETAMINOPHEN 325 MG TABLET PO PRN (19:56)
[2022-03-15] MEDS ORDERED: GLUCAGON 1 MG VIAL IM PRN (19:56)
[2022-03-15] MEDS ORDERED: DEXTROSE 10% 250 ML BAG IV PRN (19:56)
[2022-03-15] MEDS ORDERED: ONDANSETRON 4 MG/2 ML VIAL IV PRN (19:56)
[2022-03-15] MEDS ORDERED: ALUMINUM/MAGNES/SIMETH MAX STR 30 ML UDCUP PO PRN (19:56)
[2022-03-15 20:44] LABS: Basophils % 0.1 % (0.0-0.8); Eosinophils # 0.1 10*3/uL (0.0-0.87); Eosinophils % 0.6 % (0.00-10.9); Hematocrit 23.4 VOL% (42.0-52.0); Hemoglobin 6.9 GM/DL (14.0-18.0); Immature Granulocytes % 1.2 %; Lymphocytes # 1.2 10*3/uL (1.4-4.0); Lymphocytes % 14.3 % (21.2-54.2); Mean Corpuscular HGB Conc 29.5 GM/DL (32-36); Mean Platelet Volume 11.1 FL (9.6-12.0); Monocytes # 0.8 10*3/uL (0.11-0.8); Monocytes % 9.5 % (1.7-12.7); NRBC # 0.09 10*3/uL; Neutrophils % 74.3 % (38.7-73.9); Platelet Count 189 T/CUMM (130-400); Red Blood Count 2.49 MC/CUMM (3.8-5.5); Red Cell Distribution Width 17.4 % (9.3-17.3); White Blood Count 8.2 T/CUMM (4-12)
[2022-03-15] MEDS ORDERED: SODIUM CHLORIDE 0.9% 1,000 ML IV PRN (21:06)
[2022-03-15] MEDS ORDERED: carvediloL 3.125 MG TABLET PO SCH (21:30)
[2022-03-15 21:33] LABS: Calcium 8.2 MG/DL (8.5-10.1); Potassium 3.6 MMOL/L (3.5-5.1)
[2022-03-15] MEDS: LATANOPROST 0.005% BOTH EYES SCH (21:35)
[2022-03-15] MEDS: PANTOPRAZOLE 40 MG VIAL IV SCH (21:35)
[2022-03-15] MEDS: BRIMONIDINE 0.2% BOTH EYES SCH (21:35)
[2022-03-15] MEDS: DORZOLAMIDE 2% BOTH EYES SCH (21:35)
[2022-03-16] MEDS: ATORVASTATIN 10 MG TABLET PO SCH ×2 (07:11→20:47)
[2022-03-16 08:06] LABS: Basophils % 0.2 % (0.0-0.8); Eosinophils % 0.5 % (0.00-10.9); Hematocrit 23.4 VOL% (42.0-52.0); Hemoglobin 7.1 GM/DL (14.0-18.0); Immature Granulocytes Absolute 0.06 #; Lymphocytes # 1.1 10*3/uL (1.4-4.0); Mean Corpuscular HGB Conc 30.3 GM/DL (32-36); Mean Corpuscular Volume 91.8 FL (87-102); Mean Platelet Volume 10.5 FL (9.6-12.0); Monocytes # 0.8 10*3/uL (0.11-0.8); Monocytes % 11.9 % (1.7-12.7); NRBC # 0.05 10*3/uL; Neutrophils % 69.4 % (38.7-73.9); Platelet Count 154 T/CUMM (130-400); Red Blood Count 2.55 MC/CUMM (3.8-5.5); Red Cell Distribution Width 16.5 % (9.3-17.3); White Blood Count 6.3 T/CUMM (4-12)
[2022-03-16 08:16] LABS: INR 1.2; PT Patient Result 13.4 SECS (10.1-12.1); Partial Thromboplastin Time 30.8 SECS (23.7-32.9)
[2022-03-16 08:29] LABS: Albumin 2.4 G/DL (3.4-5.0); Bilirubin,Total 0.6 MG/DL (0.20-1.00); Osmolality,Calculated 294.6 MOS/KG (273-304); Potassium 3.6 MMOL/L (3.5-5.1); Total Protein 4.9 G/DL (6.4-8.2)
[2022-03-16] MEDS: carvediloL 3.125 MG TABLET PO SCH ×2 (08:50→17:51)
[2022-03-16] MEDS: SACUBITRIL/VALSARTAN 49-51 MG TABLET PO SCH ×2 (08:51→10:39)
[2022-03-16] MEDS: FUROSEMIDE 20 MG TABLET PO SCH (08:51)
[2022-03-16] MEDS ORDERED: PANTOPRAZOLE 40 MG TABLET PO SCH (09:00)
[2022-03-16] MEDS: FINASTERIDE 5 MG TABLET PO SCH (10:32)
[2022-03-16] MEDS: TAMSULOSIN 0.4 MG CAPSULE PO SCH (10:34)
[2022-03-16] MEDS: POTASSIUM CHLORIDE 20 MEQ TABLET PO SCH (10:35)
[2022-03-16] MEDS: BUMETANIDE 1 MG TABLET PO SCH (10:35)
[2022-03-16] MEDS: PANTOPRAZOLE 40 MG VIAL IV SCH ×2 (10:37→20:46)
[2022-03-16] MEDS: BRIMONIDINE 0.2% BOTH EYES SCH ×2 (10:41→21:13)
[2022-03-16] MEDS: DORZOLAMIDE 2% BOTH EYES SCH ×2 (10:41→21:14)
[2022-03-16] MEDS ORDERED: SODIUM CHLORIDE 0.9% 1,000 ML IV PRN (10:55)
[2022-03-16 21:07] LABS: Hematocrit 26.9 VOL% (42.0-52.0); Hemoglobin 8.2 GM/DL (14.0-18.0)
[2022-03-16] MEDS: LATANOPROST 0.005% BOTH EYES SCH (21:14)
[2022-03-16] MEDS: LACTATED RINGERS 1,000 ML IV SCH (22:00)
[2022-03-17 06:05] LABS: Basophils % 0.2 % (0.0-0.8); Eosinophils # 0.1 10*3/uL (0.0-0.87); Eosinophils % 1.4 % (0.00-10.9); Hematocrit 25.4 VOL% (42.0-52.0); Hemoglobin 7.9 GM/DL (14.0-18.0); Immature Granulocytes % 0.4 %; Immature Granulocytes Absolute 0.02 #; Lymphocytes # 0.9 10*3/uL (1.4-4.0); Lymphocytes % 18.3 % (21.2-54.2); Mean Corpuscular HGB Conc 31.1 GM/DL (32-36); Mean Corpuscular Volume 91.7 FL (87-102); Mean Platelet Volume 11.2 FL (9.6-12.0); Monocytes # 0.6 10*3/uL (0.11-0.8); Monocytes % 10.8 % (1.7-12.7); NRBC # 0.02 10*3/uL; Neutrophils % 68.9 % (38.7-73.9); Platelet Count 142 T/CUMM (130-400); Red Blood Count 2.77 MC/CUMM (3.8-5.5); Red Cell Distribution Width 15.7 % (9.3-17.3); White Blood Count 5.1 T/CUMM (4-12)
[2022-03-17 06:18] LABS: Calcium 7.8 MG/DL (8.5-10.1); INR 1.2; Osmolality,Calculated 292.7 MOS/KG (273-304); Potassium 3.6 MMOL/L (3.5-5.1)
[2022-03-17] MEDS ORDERED: propofoL 200 MG/20 ML VIAL IV ONE (07:27)
[2022-03-17] MEDS ORDERED: LIDOCAINE 2% 5 ML VIAL ONE (07:27)
[2022-03-17] MEDS ORDERED: ETOMIDATE 20 MG/10 ML VIAL IV ONE (07:27)
[2022-03-17] MEDS: TAMSULOSIN 0.4 MG CAPSULE PO SCH (09:41)
[2022-03-17] MEDS: BUMETANIDE 1 MG TABLET PO SCH (09:41)
[2022-03-17] MEDS: DORZOLAMIDE 2% BOTH EYES SCH ×3 (09:41→22:14)
[2022-03-17] MEDS: carvediloL 3.125 MG TABLET PO SCH ×2 (09:41→17:14)
[2022-03-17] MEDS: BRIMONIDINE 0.2% BOTH EYES SCH ×3 (09:41→22:13)
[2022-03-17] MEDS: POTASSIUM CHLORIDE 20 MEQ TABLET PO SCH (09:42)
[2022-03-17] MEDS: FUROSEMIDE 20 MG TABLET PO SCH (09:42)
[2022-03-17] MEDS: FINASTERIDE 5 MG TABLET PO SCH (09:43)
[2022-03-17] MEDS: PANTOPRAZOLE 40 MG VIAL IV SCH ×2 (09:43→20:57)
[2022-03-17 13:35] LABS: Hematocrit 28.1 VOL% (42.0-52.0); Hemoglobin 8.4 GM/DL (14.0-18.0)
[2022-03-17] MEDS: LACTATED RINGERS 1,000 ML IV SCH (17:14)
[2022-03-17] MEDS: ATORVASTATIN 10 MG TABLET PO SCH (20:57)
[2022-03-17] MEDS: LATANOPROST 0.005% BOTH EYES SCH (20:57)
[2022-03-18] MEDS: LACTATED RINGERS 1,000 ML IV SCH ×3 (05:24→10:11)
[2022-03-18 06:55] LABS: INR 1.1; PT Patient Result 12.3 SECS (10.1-12.1)
[2022-03-18 09:16] LABS: Basophils % 0.2 % (0.0-0.8); Eosinophils # 0.1 10*3/uL (0.0-0.87); Eosinophils % 1.2 % (0.00-10.9); Hematocrit 25.1 VOL% (42.0-52.0); Hemoglobin 7.5 GM/DL (14.0-18.0); Immature Granulocytes % 0.5 %; Immature Granulocytes Absolute 0.03 #; Lymphocytes # 0.9 10*3/uL (1.4-4.0); Lymphocytes % 16.1 % (21.2-54.2); Mean Corpuscular HGB Conc 29.9 GM/DL (32-36); Mean Corpuscular Volume 93.3 FL (87-102); Mean Platelet Volume 11.3 FL (9.6-12.0); Monocytes # 0.6 10*3/uL (0.11-0.8); Monocytes % 10.4 % (1.7-12.7); Neutrophils % 71.6 % (38.7-73.9); Platelet Count 154 T/CUMM (130-400); Red Blood Count 2.69 MC/CUMM (3.8-5.5); Red Cell Distribution Width 15.9 % (9.3-17.3); White Blood Count 5.8 T/CUMM (4-12)
[2022-03-18 09:26] LABS: Osmolality,Calculated 292.7 MOS/KG (273-304); Potassium 4.1 MMOL/L (3.5-5.1)
[2022-03-18] MEDS: carvediloL 3.125 MG TABLET PO SCH ×2 (09:43→18:00)
[2022-03-18] MEDS: BUMETANIDE 1 MG TABLET PO SCH (10:11)
[2022-03-18] MEDS: BRIMONIDINE 0.2% BOTH EYES SCH ×2 (10:11→20:29)
[2022-03-18] MEDS: POTASSIUM CHLORIDE 20 MEQ TABLET PO SCH (10:11)
[2022-03-18] MEDS: DORZOLAMIDE 2% BOTH EYES SCH ×2 (10:11→20:29)
[2022-03-18] MEDS: TAMSULOSIN 0.4 MG CAPSULE PO SCH (10:11)
[2022-03-18] MEDS: FUROSEMIDE 20 MG TABLET PO SCH (10:11)
[2022-03-18] MEDS: FINASTERIDE 5 MG TABLET PO SCH (10:12)
[2022-03-18] MEDS: PANTOPRAZOLE 40 MG VIAL IV SCH ×2 (10:12→20:31)
[2022-03-18] MEDS ORDERED: SODIUM CHLORIDE 0.9% 1,000 ML IV PRN (13:29)
[2022-03-18 15:00] LABS: Eosinophils # 0.1 10*3/uL (0.0-0.87); Eosinophils % 1.5 % (0.00-10.9); Hemoglobin 7.4 GM/DL (14.0-18.0); Immature Granulocytes % 0.4 %; Immature Granulocytes Absolute 0.02 #; Lymphocytes # 0.9 10*3/uL (1.4-4.0); Lymphocytes % 17.2 % (21.2-54.2); Mean Corpuscular HGB Conc 29.6 GM/DL (32-36); Mean Platelet Volume 10.6 FL (9.6-12.0); Monocytes # 0.6 10*3/uL (0.11-0.8); Monocytes % 10.8 % (1.7-12.7); Neutrophils % 70.1 % (38.7-73.9); Platelet Count 154 T/CUMM (130-400); Red Blood Count 2.66 MC/CUMM (3.8-5.5); Red Cell Distribution Width 15.7 % (9.3-17.3); White Blood Count 5.2 T/CUMM (4-12)
[2022-03-18 15:23] LABS: Ferritin 29.8 ng/mL (26-388)
[2022-03-18 15:26] LABS: Folate 5.23 NG/ML (5.38-24.0); Vitamin B12 379 PG/ML (211-911)
[2022-03-18 16:01] LABS: Sedimentation Rate-Westergren 119 MM/HR (0-20)
[2022-03-18] MEDS: LATANOPROST 0.005% BOTH EYES SCH (20:29)
[2022-03-18] MEDS: ATORVASTATIN 10 MG TABLET PO SCH (20:29)
[2022-03-19] MEDS: LACTATED RINGERS 1,000 ML IV SCH ×3 (01:17→20:44)
[2022-03-19 05:25] LABS: Eosinophils # 0.1 10*3/uL (0.0-0.87); Eosinophils % 1.7 % (0.00-10.9); Hematocrit 24.4 VOL% (42.0-52.0); Hemoglobin 7.6 GM/DL (14.0-18.0); Immature Granulocytes % 0.3 %; Immature Granulocytes Absolute 0.02 #; Lymphocytes % 17.2 % (21.2-54.2); Mean Corpuscular HGB Conc 31.1 GM/DL (32-36); Mean Corpuscular Volume 89.7 FL (87-102); Monocytes # 0.6 10*3/uL (0.11-0.8); Monocytes % 10.3 % (1.7-12.7); Neutrophils % 70.5 % (38.7-73.9); Platelet Count 144 T/CUMM (130-400); Red Blood Count 2.72 MC/CUMM (3.8-5.5); Red Cell Distribution Width 15.3 % (9.3-17.3); White Blood Count 5.8 T/CUMM (4-12)
[2022-03-19 05:41] LABS: Calcium 7.9 MG/DL (8.5-10.1); Osmolality,Calculated 292.7 MOS/KG (273-304); Potassium 3.6 MMOL/L (3.5-5.1)
[2022-03-19] MEDS ORDERED: MAGNESIUM SULF RIDER 4 GM/100 ML PREMIX IV PRN (06:29)
[2022-03-19] MEDS ORDERED: POTASSIUM CHLORIDE RIDER 10 MEQ/100 ML PREMIX IV PRN (06:29)
[2022-03-19] MEDS ORDERED: MAGNESIUM SULF RIDER 2 GM/50 ML PREMIX IV PRN (06:29)
[2022-03-19] MEDS: PANTOPRAZOLE 40 MG VIAL IV SCH ×2 (08:26→20:46)
[2022-03-19] MEDS: BUMETANIDE 1 MG TABLET PO SCH (08:26)
[2022-03-19] MEDS: FINASTERIDE 5 MG TABLET PO SCH (08:27)
[2022-03-19] MEDS: TAMSULOSIN 0.4 MG CAPSULE PO SCH (08:27)
[2022-03-19] MEDS: FUROSEMIDE 20 MG TABLET PO SCH (08:27)
[2022-03-19] MEDS: carvediloL 3.125 MG TABLET PO SCH ×2 (08:27→16:00)
[2022-03-19] MEDS: POTASSIUM CHLORIDE 20 MEQ TABLET PO SCH (08:27)
[2022-03-19] MEDS: BRIMONIDINE 0.2% BOTH EYES SCH ×2 (08:29→20:45)
[2022-03-19] MEDS: DORZOLAMIDE 2% BOTH EYES SCH ×2 (08:29→20:45)
[2022-03-19] MEDS ORDERED: POLYETHYLENE GLYCOL 3350/ELECTROLYTES 4,000 ML BOTTLE PO ONE (12:00)
[2022-03-19 13:20] LABS: Basophils % 0.2 % (0.0-0.8); Eosinophils # 0.1 10*3/uL (0.0-0.87); Eosinophils % 2.1 % (0.00-10.9); Hematocrit 25.9 VOL% (42.0-52.0); Immature Granulocytes % 0.4 %; Immature Granulocytes Absolute 0.02 #; Lymphocytes # 0.8 10*3/uL (1.4-4.0); Lymphocytes % 15.4 % (21.2-54.2); Mean Corpuscular HGB Conc 30.9 GM/DL (32-36); Mean Corpuscular Volume 90.2 FL (87-102); Mean Platelet Volume 10.2 FL (9.6-12.0); Monocytes # 0.5 10*3/uL (0.11-0.8); Monocytes % 10.2 % (1.7-12.7); Neutrophils % 71.7 % (38.7-73.9); Platelet Count 162 T/CUMM (130-400); Red Blood Count 2.87 MC/CUMM (3.8-5.5); Red Cell Distribution Width 15.2 % (9.3-17.3); White Blood Count 5.3 T/CUMM (4-12)
[2022-03-19] MEDS: ATORVASTATIN 10 MG TABLET PO SCH (20:45)
[2022-03-19] MEDS: LATANOPROST 0.005% BOTH EYES SCH (20:47)
[2022-03-20 06:37] LABS: Basophils % 0.1 % (0.0-0.8); Eosinophils # 0.1 10*3/uL (0.0-0.87); Hematocrit 25.8 VOL% (42.0-52.0); Hemoglobin 7.9 GM/DL (14.0-18.0); Immature Granulocytes % 0.4 %; Immature Granulocytes Absolute 0.03 #; Lymphocytes # 0.9 10*3/uL (1.4-4.0); Lymphocytes % 13.1 % (21.2-54.2); Mean Corpuscular HGB Conc 30.6 GM/DL (32-36); Mean Corpuscular Volume 89.9 FL (87-102); Mean Platelet Volume 11.3 FL (9.6-12.0); Monocytes # 0.6 10*3/uL (0.11-0.8); Monocytes % 8.2 % (1.7-12.7); NRBC # 0.02 10*3/uL; Neutrophils % 76.2 % (38.7-73.9); Platelet Count 187 T/CUMM (130-400); Red Blood Count 2.87 MC/CUMM (3.8-5.5); Red Cell Distribution Width 15.1 % (9.3-17.3); White Blood Count 6.9 T/CUMM (4-12)
[2022-03-20 06:55] LABS: Calcium 8.1 MG/DL (8.5-10.1); Osmolality,Calculated 290.8 MOS/KG (273-304); Potassium 3.7 MMOL/L (3.5-5.1)
[2022-03-20] MEDS ORDERED: LIDOCAINE 2% 5 ML VIAL ONE (09:13)
[2022-03-20] MEDS ORDERED: propofoL 200 MG/20 ML VIAL IV ONE (09:13)
[2022-03-20] MEDS ORDERED: ETOMIDATE 20 MG/10 ML VIAL IV ONE (09:13)
[2022-03-20 09:33] LABS: Hemoglobin A1 (Alkaline) 97.8 % (96.5-98.5); Hemoglobin A2 (Alkaline) 2.2 % (1.5-3.5)
[2022-03-20] MEDS: FINASTERIDE 5 MG TABLET PO SCH (10:45)
[2022-03-20] MEDS: FUROSEMIDE 20 MG TABLET PO SCH (10:45)
[2022-03-20] MEDS: POTASSIUM CHLORIDE 20 MEQ TABLET PO SCH (10:45)
[2022-03-20] MEDS: TAMSULOSIN 0.4 MG CAPSULE PO SCH (10:46)
[2022-03-20] MEDS: BUMETANIDE 1 MG TABLET PO SCH (10:46)
[2022-03-20] MEDS: BRIMONIDINE 0.2% BOTH EYES SCH ×2 (10:46→21:47)
[2022-03-20] MEDS: DORZOLAMIDE 2% BOTH EYES SCH ×2 (10:47→21:50)
[2022-03-20] MEDS: PANTOPRAZOLE 40 MG VIAL IV SCH ×2 (10:47→21:34)
[2022-03-20] MEDS: carvediloL 3.125 MG TABLET PO SCH ×2 (11:35→18:35)
[2022-03-20] MEDS: LACTATED RINGERS 1,000 ML IV SCH (11:35)
[2022-03-20] MEDS ORDERED: MAGNESIUM CITRATE 300 ML BOTTLE PO ONE (16:00)
[2022-03-20] MEDS ORDERED: POLYETHYLENE GLYCOL POWDER 255 GM BOTTLE PO ONE (18:00)
[2022-03-20 18:31] LABS: Hematocrit 24.3 VOL% (42.0-52.0); Hemoglobin 7.2 GM/DL (14.0-18.0)
[2022-03-20 18:49] LABS: Hematocrit 24.9 VOL% (42.0-52.0); Hemoglobin 7.5 GM/DL (14.0-18.0)
[2022-03-20] MEDS: ATORVASTATIN 10 MG TABLET PO SCH (21:34)
[2022-03-20] MEDS: LATANOPROST 0.005% BOTH EYES SCH (21:50)
[2022-03-21 01:10] LABS: Hemoglobin 7.2 GM/DL (14.0-18.0)
[2022-03-21] MEDS: LACTATED RINGERS 1,000 ML IV SCH ×3 (01:23→18:50)
[2022-03-21] MEDS ORDERED: SODIUM PHOSPHATE ENEMA 133 ML BOTTLE RECTAL ONE (06:00)
[2022-03-21 07:19] LABS: Eosinophils # 0.1 10*3/uL (0.0-0.87); Eosinophils % 1.8 % (0.00-10.9); Hematocrit 23.2 VOL% (42.0-52.0); Immature Granulocytes % 0.2 %; Immature Granulocytes Absolute 0.01 #; Lymphocytes # 0.8 10*3/uL (1.4-4.0); Lymphocytes % 18.5 % (21.2-54.2); Mean Corpuscular HGB Conc 30.2 GM/DL (32-36); Mean Corpuscular Volume 91.3 FL (87-102); Mean Platelet Volume 10.8 FL (9.6-12.0); Monocytes # 0.4 10*3/uL (0.11-0.8); Monocytes % 9.9 % (1.7-12.7); Neutrophils % 69.6 % (38.7-73.9); Platelet Count 158 T/CUMM (130-400); Red Blood Count 2.54 MC/CUMM (3.8-5.5); Red Cell Distribution Width 14.8 % (9.3-17.3); White Blood Count 4.3 T/CUMM (4-12)
[2022-03-21 07:36] LABS: Calcium 8.1 MG/DL (8.5-10.1); Osmolality,Calculated 287.8 MOS/KG (273-304); Potassium 3.4 MMOL/L (3.5-5.1)
[2022-03-21] MEDS ORDERED: SODIUM CHLORIDE 0.9% 1,000 ML IV PRN ×2 (08:59→15:08)
[2022-03-21] MEDS ORDERED: ETOMIDATE 20 MG/10 ML VIAL IV ONE (09:43)
[2022-03-21] MEDS ORDERED: propofoL 200 MG/20 ML VIAL IV ONE (09:43)
[2022-03-21] MEDS ORDERED: LIDOCAINE 2% 5 ML VIAL ONE (09:43)
[2022-03-21] MEDS: FINASTERIDE 5 MG TABLET PO SCH (12:10)
[2022-03-21] MEDS: POTASSIUM CHLORIDE 20 MEQ TABLET PO SCH (12:10)
[2022-03-21] MEDS: TAMSULOSIN 0.4 MG CAPSULE PO SCH (12:10)
[2022-03-21] MEDS: FUROSEMIDE 20 MG TABLET PO SCH (12:11)
[2022-03-21] MEDS: BUMETANIDE 1 MG TABLET PO SCH (12:11)
[2022-03-21] MEDS: carvediloL 3.125 MG TABLET PO SCH ×2 (12:11→17:31)
[2022-03-21] MEDS: PANTOPRAZOLE 40 MG VIAL IV SCH ×2 (12:12→22:10)
[2022-03-21] MEDS: DORZOLAMIDE 2% BOTH EYES SCH ×2 (12:14→22:09)
[2022-03-21] MEDS: BRIMONIDINE 0.2% BOTH EYES SCH ×2 (12:14→22:09)
[2022-03-21] MEDS: ATORVASTATIN 10 MG TABLET PO SCH (22:09)
[2022-03-21] MEDS: LATANOPROST 0.005% BOTH EYES SCH (22:09)
[2022-03-21 22:23] LABS: Hematocrit 23.5 VOL% (42.0-52.0); Hemoglobin 7.5 GM/DL (14.0-18.0)
[2022-03-22 05:52] LABS: Eosinophils # 0.1 10*3/uL (0.0-0.87); Eosinophils % 1.8 % (0.00-10.9); Hematocrit 23.8 VOL% (42.0-52.0); Hemoglobin 7.3 GM/DL (14.0-18.0); Immature Granulocytes % 0.4 %; Immature Granulocytes Absolute 0.02 #; Lymphocytes # 0.9 10*3/uL (1.4-4.0); Lymphocytes % 16.1 % (21.2-54.2); Mean Corpuscular HGB Conc 30.7 GM/DL (32-36); Mean Corpuscular Volume 90.2 FL (87-102); Mean Platelet Volume 10.4 FL (9.6-12.0); Monocytes # 0.6 10*3/uL (0.11-0.8); Monocytes % 11.1 % (1.7-12.7); Neutrophils % 70.6 % (38.7-73.9); Platelet Count 169 T/CUMM (130-400); Red Blood Count 2.64 MC/CUMM (3.8-5.5); Red Cell Distribution Width 14.8 % (9.3-17.3); White Blood Count 5.4 T/CUMM (4-12)
[2022-03-22 06:24] LABS: Calcium 7.9 MG/DL (8.5-10.1); Osmolality,Calculated 283.1 MOS/KG (273-304); Potassium 3.6 MMOL/L (3.5-5.1)
[2022-03-22 08:29] LABS: % Iron Saturation 4.3 % (18-50)
[2022-03-22] MEDS ORDERED: IRON SUCROSE 200 MG in SODIUM CHLORIDE 0.9% 100 ML IV ONE (09:02)
[2022-03-22] MEDS: FUROSEMIDE 20 MG TABLET PO SCH (09:23)
[2022-03-22] MEDS: FINASTERIDE 5 MG TABLET PO SCH (09:23)
[2022-03-22] MEDS: PANTOPRAZOLE 40 MG VIAL IV SCH (09:23)
[2022-03-22] MEDS: TAMSULOSIN 0.4 MG CAPSULE PO SCH (09:23)
[2022-03-22] MEDS: POTASSIUM CHLORIDE 20 MEQ TABLET PO SCH (09:23)
[2022-03-22] MEDS: FERROUS SULFATE 325 MG TABLET PO SCH ×2 (09:24→16:37)
[2022-03-22] MEDS: carvediloL 3.125 MG TABLET PO SCH ×2 (09:24→16:37)
[2022-03-22] MEDS: DORZOLAMIDE 2% BOTH EYES SCH (09:25)
[2022-03-22] MEDS: BRIMONIDINE 0.2% BOTH EYES SCH (09:25)
[2022-03-22] MEDS ORDERED: FERRIC GLUCONATE COMPLEX 125 MG in SODIUM CHLORIDE 0.9% 100 ML IV ONE (10:00)
[2022-03-22] MEDS ORDERED: SODIUM CHLORIDE 0.9% 1,000 ML IV PRN (12:00)
[2022-03-22] MEDS: BUMETANIDE 1 MG TABLET PO SCH (12:03)
[2022-03-22 16:42] VITALS: BP 117/79
== END 2022-03-22 18:10 | disposition home or self-care (01) | DRG 378 ==
LOC: SUATTDRO 19:34 → N.3E 19:34
PROVIDERS: ADMIT Internal Medicine; ATTEND Internal Medicine